=== PATIENT | male | born 1985 | race Caucasian/White ===

== ENCOUNTER 2017-06-27 21:26 | Emergency (ER) | payer OTHER ==
[2017-06-27 21:33] VITALS: BMI 21.6
[2017-06-27] MEDS ORDERED: XYLOCAINE 1 % (PLAIN) ONE (22:22)
[2017-06-27 22:32] VITALS: BP 113/73
[2017-06-27] MEDS ORDERED: KEFLEX CAP 500 MG PO ONE ×2 (22:55→23:06)
[2017-06-27] MEDS ORDERED: MOTRIN TAB 800 MG PO ONE ×2 (22:55→23:06)
[2017-06-27] MEDS ORDERED: ADACEL TDaP IM ONE (23:07)
--- NOTE | 2017-06-27 23:07 | DR.LACERAT ---
HPI - Primary Care Physician Primary Care Physician: NFD - Complaints Chief Complaint:: "I CUT MY ARM ON A PIECE OF METAL THAT COVERS THE WINDOWS.". NOTED LACERATION TO RIGHT FOREARM, NO ACTIVE BLEEDING, DRESSING INTACT CONTROLLING BLEEDING. NO FOREIGN BODY, NO DEFORMITY. Self Treatment fo Chief Complaint: DRESSINGS - Source History Provided: Patient - Timing Onset of Chief Complaint: 06/27/17 PMH - PMH Past Medical History: Yes Past Medical History: GERD Past Surgical History: No - Family History History of Family Medical Conditions: Yes Family Medical History: Heart Failure - Social History Type of Tobacco Use: Cigarettes Alcohol Use: None Do you use any recreational Drugs:: No Lives With: Other Lives Where: Home - infectious screening Have you traveled outside the country in the last 6 months?: No Isolation: Standard PE - Vital Signs Vitals: Temperature 99.5 F Pulse Rate [Right Brachial] 77 Respiratory Rate 18 Blood Pressure [Right Arm] 113/73 Blood Pressure 142/91 O2 Sat by Pulse Oximetry 96 - Discharge Plan Condition: Stable Prescriptions: Cephalexin [KEFLEX CAP 500 MG *] 500 mg PO TID #30 cap Ibuprofen [MOTRIN TAB 800 MG *] 800 mg PO Q8H PRN #30 tab PRN Reason: Pain/Inflammation - Follow ups/Referrals Follow ups/Referrals: NFD,None [Primary Care Provider] - 3 days - Instructions Instructions: [facility], Adult, [id number] Additional Instructions: RETURN TO ED IF WORSE. SUTURE OUT IN 10 DAYS
[2017-06-27] MEDS ORDERED: NEOSPORIN OINT ONE (23:10)
== END 2017-06-27 23:22 | disposition home or self-care (01) ==
LOC: ER 21:26
PROC: 0XQ8XZZ Repair Right Upper Arm, External Approach (ICD-10-PCS; principal; 2017-06-27)
DX: S51.811A Laceration without foreign body of right forearm, initial encounter (principal); W45.8XXA Other foreign body or object entering through skin, initial encounter; Y92.9 Unspecified place or not applicable
CPT/HCPCS: 12001; 90471; 99282; J2001